=== PATIENT | female | born 1970 | race Caucasian/White ===

== ENCOUNTER 2017-02-04 19:17 | Emergency (ER) | payer MEDICAID ==
[~2017-02-04] VITALS: Ht 154.9 cm; Wt 61.0 kg
[~2017-02-04 19:17] MED LIST: CYCL-319 PO; FIORICET PO; NAPR-260 PO
[2017-02-04 19:46] VITALS: Ht 154.9 cm; Wt 61.0 kg
[2017-02-04] MEDS ORDERED: KETOROLAC 60 MG INJ IM STA (20:50)
[2017-02-04 21:07] LABS: URINE BLOOD (Dip) POC Trace-lysed (NEGATIVE)
[2017-02-04] MEDS ORDERED: IBUP800T25 PO (21:22)
[2017-02-04] MEDS ORDERED: TRAM50TA2 PO (21:22)
--- NOTE | 2017-02-04 21:25 | ERD ---
ER Documentation Chief Complaint Date/Time DATE: 02/04/17 TIME: 21:23 Chief Complaint GENERALIZED BODY PAIN, PT C/O "BONE PAIN", HEADACHE HPI 46-year-old otherwise healthy female presents complaining of body pain for the past 2 weeks. Pain is in her lower back as well as bilateral knees. She denies any trauma. She denies any bowel or bladder incontinence. Denies any saddle anesthesia. Denies any urinary symptoms. Denies fever. She takes Tylenol at home but does not help. ROS All systems reviewed and are negative except as per history of present illness. Medications Home Meds Active Scripts Tramadol HCl (Tramadol HCl) 50 Mg Tablet, 50 MG PO Q6 Y for PAIN, #20 TAB Prov:RAIN MAURICE PA-C 02/04/17 Ibuprofen* (Motrin*) 800 Mg Tab, 800 MG PO Q6, #30 TAB Prov:RAIN MAURICE PA-C 02/04/17 Naproxen* (Naprosyn*) 500 Mg Tablet, 500 MG PO BID Y for PAIN AND/OR INFLAMMATION, #30 TAB Prov:CHARMAINE SHARIF PA-C 02/25/16 Cyclobenzaprine Hcl* (Cyclobenzaprine Hcl*) 10 Mg Tablet, 10 MG PO TID, #15 TAB Prov:CHARAMINE SHARIF PA-C 02/25/16 Acetamin/Butalbital/Caffeine* (Fioricet*) 1 Tab Tab, 1 TAB PO Q4H Y for PAIN LEVEL 1-5, #20 TAB Prov:CHARMAINE SHARIF PA-C 01/23/16 PMhx/Soc Medical and Surgical Hx: pt denies Medical Hx History of Surgery: Yes (hysterectomy, left oophorectomy, appendectomy) Anesthesia Reaction: No Hx Neurological Disorder: No Hx Respiratory Disorders: No Hx Cardiac Disorders: No Hx Psychiatric Problems: No Hx Miscellaneous Medical Probl: No Hx Alcohol Use: No Hx Substance Use: No Hx Tobacco Use: No Smoking Status: Never smoker FmHx Family History: No diabetes Physical Exam Vitals Vital Signs Date Time Temp Pulse Resp B/P Pulse Ox O2 Delivery O2 Flow Rate FiO2 02/04/17 19:46 98.3 80 17 135/77 98 Physical Exam General: well developed, well nourished, alert, nontoxic, no distress Head: normocephalic, atraumatic Neck: Supple, nontender, no lymphadenopathy, no midline tenderness Oropharynx: no tonsilar erythema or edema, uvula midline, no exudates, no kissing tonsils, no drooling Respiratory: Clear to auscaultation bilaterally, speaks in full sentences, no use of accesory muscles or labored breathing, no rales, ronchi, or wheezing Cardiovascular: RRR, No murmurs GI: soft, non tender, non distended, negative murphys sign, negative mcburneys point tenderness, no cva tenderness bilaterally, no rebound or guarding Back: no midline tenderness, no step offs or bony abnormalities, sensation to light touch in tact Extremities: moving all extremities normally, normal gait, no edema Results 24 hrs Laboratory Tests Test 02/04/17 21:10 Bedside Urine pH (LAB) 7.5 Bedside Urine Protein (LAB) Negative Bedside Urine Glucose (UA) Negative Bedside Urine Ketones (LAB) Negative Bedside Urine Blood Trace-lysed Bedside Urine Nitrite (LAB) Negative Bedside Urine Leukocyte Esterase (L Negative Current Medications Medications (Trade) Dose Ordered Sig/Lanie Route PRN Reason Start Time Stop Time Status Last Admin Dose Admin Ketorolac Tromethamine (Toradol) 60 mg ONCE STAT IM 02/04/17 20:50 02/04/17 20:51 DC 02/04/17 21:03 Procedures/MDM Patient presents with generalized body aches. Her vital signs are normal. There was no trauma warranting imaging. Her exam is normal. She was given Toradol here in the emergency room. She was discharged with ibuprofen and tramadol. Urine dip was negative for infection here in the emergency room. Recommended this patient follow up with her primary care doctor within 48 hours or return to the emergency room for any worsening of symptoms. However this time I do believe there is suitable for outpatient management. I answered all their questions and they agreed with the plan and were discharged home. Departure Diagnosis: Primary Impression: Myalgia Condition: Stable Patient Instructions: Myalgias Additional Instructions: Llame al doctor CONRADO y rodri jocelyn EDWIN PARA DENTRO DE 1-2 GARCIA.Dgale a la secretaria que nosotros le instruimos hacer esta edwin.Avise o llame si muse condicin se empeora antes de la edwin. Regresa aqui si peor o no mejor. RAIN MAURICE PA-C Feb 04, 2017 21:25
== END 2017-02-04 21:31 | disposition home or self-care (01) ==
LOC: FTE 19:17
DX: M79.1 Myalgia (principal)
CPT/HCPCS: 81003; 96372; J1885; Z7502

== ENCOUNTER 2017-06-11 19:41 | Emergency (ER) | payer MEDICAID ==
[~2017-06-11] VITALS: Ht 154.9 cm; Wt 61.0 kg
[~2017-06-11 19:41] MED LIST changes: +IBUP800T25 PO; +TRAM50TA2 PO
[2017-06-11 19:45] VITALS: Ht 154.9 cm; Wt 61.0 kg
[2017-06-11] MEDS ORDERED: METOCLOPRAMIDE 10 MG INJ IV STA (20:41)
[2017-06-11] MEDS ORDERED: DIPHENHYDRAMINE 50 MG INJ IV STA (20:41)
[2017-06-11] MEDS ORDERED: KETOROLAC 30 MG INJ IV STA (20:41)
[2017-06-11] MEDS ORDERED: SOD CHLORIDE 0.9% 1,000 ML IV ONE (21:00)
--- NOTE | 2017-06-11 21:45 | RADRPT ---
PROCEDURE: XR Chest. CLINICAL INDICATION: Headache TECHNIQUE: Single AP portable chest. COMPARISON: No prior Chest x-ray FINDINGS: The cardiomediastinal silhouette is within normal limits of size. The lungs are clear without pleur al effusion or focal consolidation. No pneumothorax. The osseous structures and soft tissues are unr emarkable. IMPRESSION: 1. No evidence for active cardiopulmonary disease. RPTAT:AAJJ Physician Azul Date Time Electronically viewed and signed by Physician Azul on 06/11/2017 21:45 LOUIE/
[2017-06-11 22:20] LABS: BASOPHILS % 0.8 % (0.0-2.0); EOSINOPHILS % 0.8 % (0.0-7.0); HEMATOCRIT 41.3 % (37.0-47.0); HEMOGLOBIN 14.1 g/dl (12.0-16.0); LYMPHOCYTES # 1.7 10^3/ul (0.8-2.9); LYMPHOCYTES % 31.8 % (15.0-51.0); MEAN CORPUSCULAR HEMOGLOBIN 29.1 pg (29.0-33.0); MEAN CORPUSCULAR HGB CONC 34.1 g/dl (32.0-37.0); MEAN CORPUSCULAR VOLUME 85.3 fl (82.0-101.0); MONOCYTE # 0.4 10^3/ul (0.3-0.9); MONOCYTES % 6.9 % (0.0-11.0); NEUTROPHIL # 3.1 10^3/ul (1.6-7.5); NEUTROPHILS % 59.5 % (39.0-77.0); PLATELET COUNT 222 10^3/UL (140-415); RED BLOOD COUNT 4.84 10^6/ul (4.20-5.40); RED CELL DISTRIBUTION WIDTH 12.2 % (11.5-14.5); WHITE BLOOD COUNT 5.3 10^3/ul (4.8-10.8)
[2017-06-11 22:38] LABS: ANION GAP 16 (8-16); BLOOD UREA NITROGEN 11 mg/dl (7-20); CARBON DIOXIDE 26 mmol/L (21-31); CHLORIDE 104 mmol/L (97-110); CREATININE 0.67 mg/dl (0.44-1.00); GLUCOSE 92 mg/dl (70-220); POTASSIUM 3.6 mmol/L (3.5-5.1); SODIUM 142 mmol/L (135-144)
--- NOTE | 2017-06-11 22:38 | ERD ---
ER Documentation Chief Complaint Date/Time DATE: 06/11/17 TIME: 22:28 Chief Complaint headache/body aches/chills x 2 weeks HPI This is a 47 year old, with past medical history of migraines and gastritis, presenting to ER with headache, body aches, nausea, vomiting, dizziness and chest wall pain x 2 weeks. Patient was seen at an outside facility 1 week ago and diagnosed patient with "migraines." Patient has been taking Excedrin at home without relief of symptoms. Headache is "entire head." No localized area of pain. No radiating pain. No vomiting today. Patient had 2 episodes of vomiting yesterday. Nonbloody, nonbilious emesis. ROS All systems reviewed and are negative except as per history of present illness. Medications Home Meds Active Scripts Omeprazole* (Omeprazole*) 20 Mg Capsule.dr, 20 MG PO DAILY, #30 Prov:RADHA CHAO NP 06/11/17 Acetamin/Butalbital/Caffeine* (Fioricet*) [id number] Tab, 1 TAB PO Q6H Y for PAIN, #10 TAB Prov:RADHA CHAO NP 06/11/17 Tramadol HCl (Tramadol HCl) 50 Mg Tablet, 50 MG PO Q6 Y for PAIN, #20 TAB Prov:RAIN MAURICE PA-C 02/04/17 Ibuprofen* (Motrin*) 800 Mg Tab, 800 MG PO Q6, #30 TAB Prov:RAIN MAURICE PA-C 02/04/17 Naproxen* (Naprosyn*) 500 Mg Tablet, 500 MG PO BID Y for PAIN AND/OR INFLAMMATION, #30 TAB Prov:CHARMAINE SHARIF PA-C 02/25/16 Cyclobenzaprine Hcl* (Cyclobenzaprine Hcl*) 10 Mg Tablet, 10 MG PO TID, #15 TAB Prov:CHARMAINE SHARIF PA-C 02/25/16 Acetamin/Butalbital/Caffeine* (Fioricet*) 1 Tab Tab, 1 TAB PO Q4H Y for PAIN LEVEL 1-5, #20 TAB Prov:CHARMAINE SHARIF PA-C 01/23/16 Allergies Allergies: Coded Allergies: aspirin (Verified Allergy, Unknown, vomiting, 06/11/17) PMhx/Soc History of Surgery: Yes (hysterectomy, left oophorectomy, appendectomy) Anesthesia Reaction: No Hx Neurological Disorder: No Hx Respiratory Disorders: No Hx Cardiac Disorders: No Hx Psychiatric Problems: No Hx Miscellaneous Medical Probl: No Hx Alcohol Use: No Hx Substance Use: No Hx Tobacco Use: No Smoking Status: Never smoker Physical Exam Vitals Vital Signs Date Time Temp Pulse Resp B/P Pulse Ox O2 Delivery O2 Flow Rate FiO2 06/11/17 23:27 98.1 72 20 128/71 99 Room Air 06/11/17 19:45 97.8 87 20 168/94 98 Physical Exam Const: No acute distress, alert Head: Atraumatic Eyes: Normal Conjunctiva, PERRL, EOMs intact. + Allegra Hallpike maneuver ENT: Normal External Ears, Nose and Mouth. Neck: Full range of motion..~ No meningismus. Resp: Clear to auscultation bilaterally Cardio: Regular rate and rhythm, no murmurs Abd: Soft, non tender, non distended. Normal bowel sounds Skin: No petechiae or rashes Back: No midline or flank tenderness Ext: No cyanosis, or edema Neur: Awake and alert Psych: Normal Mood and Affect Result Diagram: 06/11/17210306/11/172103 Results 24 hrs Laboratory Tests Test 06/11/17 21:04 06/11/17 21:12 White Blood Count 5.310^3/ul Red Blood Count 4.8410^6/ul Hemoglobin 14.1g/dl Hematocrit 41.3% Mean Corpuscular Volume 85.3fl Mean Corpuscular Hemoglobin 29.1pg Mean Corpuscular Hemoglobin Concent 34.1g/dl Red Cell Distribution Width 12.2% Platelet Count 96715^3/UL Mean Platelet Volume 12.0fl Neutrophils % 59.5% Lymphocytes % 31.8% Monocytes % 6.9% Eosinophils % 0.8% Basophils % 0.8% Nucleated Red Blood Cells % 0.0/100WBC Neutrophils # 3.110^3/ul Lymphocytes # 1.710^3/ul Monocytes # 0.410^3/ul Eosinophils # 0.010^3/ul Basophils # 0.010^3/ul Nucleated Red Blood Cells # 0.010^3/ul Sodium Level 142mmol/L Potassium Level 3.6mmol/L Chloride Level 104mmol/L Carbon Dioxide Level 26mmol/L Anion Gap 16 Blood Urea Nitrogen 11mg/dl Creatinine 0.67mg/dl Glucose Level 92mg/dl Calcium Level 10.0mg/dl Troponin I < 0.012ng/ml Urine Color COLORLESS Urine Clarity CLEAR Urine pH 8.0 Urine Specific [place] 1.002 Urine Ketones NEGATIVEmg/dL Urine Nitrite NEGATIVEmg/dL Urine Bilirubin NEGATIVEmg/dL Urine Urobilinogen NEGATIVEmg/dL Urine Leukocyte Esterase NEGATIVELeu/ul Urine Microscopic RBC 0/HPF Urine Microscopic WBC 0/HPF Urine Bacteria FEW/HPF Urine Hemoglobin 1+mg/dL Urine Glucose NEGATIVEmg/dL Urine Total Protein NEGATIVEmg/dl Current Medications Medications (Trade) Dose Ordered Sig/Lanie Route PRN Reason Start Time Stop Time Status Last Admin Dose Admin Metoclopramide HCl (Reglan) 10 mg ONCE STAT IV 06/11/17 20:41 06/11/17 20:44 DC 06/11/17 20:54 Ketorolac Tromethamine (Toradol) 30 mg ONCE STAT IV 06/11/17 20:41 06/11/17 20:44 DC 06/11/17 20:55 Diphenhydramine HCl 25 mg 25 mg ONCE STAT IV 06/11/17 20:41 06/11/17 20:44 DC 06/11/17 21:02 Sodium Chloride (NS) 1,000 ml @ 1,000 mls/hr Q1H ONCE IV 06/11/17 21:00 06/11/17 21:59 DC 06/11/17 21:04 Procedures/MDM DM: This is a 47-year-old female presenting to emergency department with headache, body aches, nausea, vomiting, dizziness and chest wall pain 2 weeks. Patient was previously diagnosed with migraines and gastritis. Patient states she took Excedrin at home however it aggravated her gastritis and she continued taking it. Patient states she had 2 episodes of nonbloody nonbilious emesis yesterday. No vomiting today. However patient feels nauseous today. Dizziness worsens when she lays down. Positive Allegra-Hallpike maneuver. Labs drawn and urine collected per clinical staff anesthesiologist. CBC shows no significant anemia or infection. BMP shows no significant electrolyte imbalance. Troponin is negative at <0.012. Urine is negative for infection. Urine is negative. IV access obtained and patient given Benadryl, Reglan and Toradol. Patient also given 1 L IV fluid bolus. Upon reassessment, patient states pain has improved significantly. Denies this being the worst headache she's ever had. No altered mental status. No indication for Imaging at this time. No fevers or chills. No diplopia, loss of vision or blurry vision. No trauma to head or fall. No loss of consciousness. No vomiting. No confusion or altered mental status. Patient denies ataxic gait, slurred speech, numbness of the face or body, weakness, clumsiness, or incoordination. Low suspicion for CVA, TIA, meningitis, subdural hematoma, intracranial hemorrhage or mass. Differential diagnosis includes but not limited to tension headache, migraine headache, cluster headache, sinus headache, sinusitis, trigeminal neuralgia, herpes zoster and postherpetic neuralgia. Patient is appropriate for outpatient management will be given prescription for Fioricet. Instructed patient to follow-up with primary care provider in the next 2-3 days for reassessment. Resources provided. Return to ED for any high fever, chest pain, difficulty breathing, shortness breath, wheezing, vomiting, diarrhea, abdominal pain or any new or worsening symptoms. Patient verbalizes understanding. All questions answered at discharge. Disclaimer: Inadvertent spelling and grammatical errors are likely due to EHR/ dictation software use and do not reflect on the overall quality of patient care. Also, please note that the electronic time recorded on this note does not necessarily reflect the actual time of the patient encounter. Departure Diagnosis: Primary Impression: Headache Headache type: unspecified Headache chronicity pattern: chronic headache Intractability: not intractable Qualified Code: R51 - Chronic nonintractable headache, unspecified headache type Condition: Stable RADHA CHAO NP Jun 11, 2017 22:38
[2017-06-11 22:39] LABS: ADD UMIC YES; UR ASCORBIC ACID NEGATIVE (NEGATIVE); UR BACTERIA FEW /HPF (NONE SEEN); UR BILIRUBIN (Dip) NEGATIVE (NEGATIVE); UR BLOOD (Dip) 1+ mg/dL (NEGATIVE); UR CLARITY CLEAR (CLEAR); UR COLOR COLORLESS (YELLOW); UR GLUCOSE (Dip) NEGATIVE (NEGATIVE); UR KETONES (Dip) NEGATIVE (NEGATIVE); UR LEUKOCYTE ESTERASE (Dip) NEGATIVE Leu/ul (NEGATIVE); UR NITRITE (Dip) NEGATIVE (NEGATIVE); UR RBC 0 /HPF (0-5); UR SPECIFIC GRAVITY (Dip) 1.002 (1.003-1.030); UR TOTAL PROTEIN (Dip) NEGATIVE (NEGATIVE); UR UROBILINOGEN (Dip) NEGATIVE (NEGATIVE)
[2017-06-11 22:49] LABS: TROPONIN-I < 0.012 ng/ml (0.00-0.12)
[2017-06-11] MEDS ORDERED: FIORICET PO (22:52)
[2017-06-11] MEDS ORDERED: OMEP20CA16 PO (22:53)
[2017-06-11 23:27] VITALS: BP 128/71; PULSE 72; RESP 20; TEMP 98.1
== END 2017-06-11 23:28 | disposition home or self-care (01) ==
LOC: FTE 19:41
DX: R51 Headache (principal); R07.89 Other chest pain
CPT/HCPCS: 36415; 71010; 80048; 81001; 84484; 85025; 93005; 96374; 96375; J1200; J1885; J2765; J7030; Z7502

== ENCOUNTER 2018-02-18 16:14 | Emergency (ER) | END 2018-02-18 21:25 | disposition home or self-care (01) ==

== ENCOUNTER 2019-01-14 22:24 | Emergency (ER) | payer MEDICAID ==
[~2019-01-14] VITALS: Ht 154.9 cm; Wt 64.0 kg
[~2019-01-14 22:24] MED LIST changes: +ACET1TAB40 PO; -CYCL-319 PO; +CYCL10TA7 PO; -IBUP800T25 PO; +IBUP800T48 PO; +LOPE2CAP PO; -NAPR-260 PO; +NAPR-985 PO; +OMEP20CA16 PO
[2019-01-14 22:26] VITALS: Ht 154.9 cm; Wt 64.0 kg
[2019-01-14] MEDS ORDERED: morphine 4 MG/ML VIAL IV STA (23:39)
[2019-01-14] MEDS ORDERED: ONDANSETRON 4 MG INJ IV STA (23:39)
--- NOTE | 2019-01-15 02:23 | ERD ---
ER Documentation Chief Complaint Chief Complaint ABD PAIN WITH NAUSEA [id number] HPI This is a 48-year-old female with a history of gastritis who presents with nausea for 3 weeks, she endorses a burning type pain that radiates up, she den ies diarrhea, no fever, no chest pain or shortness of breath. No alleviating or aggravating factors. ROS All systems reviewed and are negative except as per history of present illness. Medications Home Meds Active Scripts Docusate Sodium* (Colace*) 100 Mg Capsule, 100 MG PO DAILY, #30 CAP Prov:ANTOLIN CAMARENA MD 01/15/19 Famotidine* (Pepcid*) 20 Mg Tablet, 20 MG PO BID for 10 Days, TAB Prov:ANTOLIN CAMARENA MD 01/15/19 Polyethylene Glycol* (Miralax*) 17 Gm Powd.pack, 17 GM PO DAILY, #7 Prov:ANTOLIN CAMARENA MD 01/15/19 Omeprazole* (Omeprazole*) 20 Mg Capsule., 20 MG PO BID, #30 Prov:LINUS FLANNERY MD 02/18/18 Acetaminophen with Codeine (Acetaminophen-Cod #3 Tablet) 1 Each Tablet, 1 TAB PO Q6H PRN for PAIN, #10 TAB Prov:LINUS FLANNERY MD 02/18/18 Loperamide Hcl* (Imodium*) 2 Mg Capsule, 2 MG PO .AFTER EA LOOSE BM PRN for D IARRHEA, #10 TAB Prov:LINUS FLANNERY MD 02/18/18 Omeprazole* (Omeprazole*) 20 Mg Capsule., 20 MG PO DAILY, #30 Prov:RADHA CHAO NP 06/11/17 Acetamin/Butalbital/Caffeine* (Fioricet*) [id number] Tab, 1 TAB PO Q6H PRN for PAIN, #10 TAB Prov:RADHA CHAO NP 06/11/17 Tramadol HCl (Tramadol HCl) 50 Mg Tablet, 50 MG PO Q6 PRN for PAIN, #20 TAB Prov:RAIN MAURICE PA-C 02/04/17 Ibuprofen* (Motrin*) 800 Mg Tab, 800 MG PO Q6, #30 TAB Prov:RAIN MAURICE PA-C 02/04/17 Naproxen* (Naprosyn*) 500 Mg Tablet, 500 MG PO BID PRN for PAIN AND/OR INFLAMMATION, #30 TAB Prov:CHARMAINE SHARIF PA-C 02/25/16 Cyclobenzaprine Hcl* (Cyclobenzaprine Hcl*) 10 Mg Tablet, 10 MG PO TID, #15 TAB Prov:CHARMAINE SHARIF PA-C 02/25/16 Acetamin/Butalbital/Caffeine* (Fioricet*) 1 Tab Tab, 1 TAB PO Q4H PRN for PAIN LEVEL 1-5, #20 TAB Prov:CHARMAINE SHARIF PA-C 01/23/16 Allergies Allergies: Coded Allergies: aspirin (Verified Allergy, Unknown, vomiting, 06/11/17) PMhx/Soc History of Surgery: Yes (hysterectomy, left oophorectomy, appendectomy) Anesthesia Reaction: No Hx Neurological Disorder: No Hx Respiratory Disorders: No Hx Cardiac Disorders: No Hx Psychiatric Problems: No Hx Miscellaneous Medical Probl: No Hx Alcohol Use: No Hx Substance Use: No Hx Tobacco Use: No Smoking Status: Never smoker Physical Exam Vitals Vital Signs Date Temp Pulse Resp B/P (MAP) Pulse Ox O2 O2 Flow FiO2 Time Delivery Rate 01/15/19 98.2 72 16 123/82 100 Room Air 03:13 (96) 01/15/19 65 18 149/85 100 Room Air 00:26 (106) 01/14/19 98.0 83 19 137/82 97 22:26 (100) Physical Exam Const: No acute distress Head: Atraumatic Eyes: Normal Conjunctiva ENT: Normal External Ears, Nose and Mouth. Neck: Full range of motion. No meningismus. Resp: Clear to auscultation bilaterally Cardio: Regular rate and rhythm, no murmurs Abd: Soft, non tender, non distended. Normal bowel sounds Skin: No petechiae or rashes Back: No midline or flank tenderness Ext: No cyanosis, or edema Neur: Awake and alert Psych: Normal Mood and Affect Result Diagram: 01/15/19 0010 01/15/19 0010 Results 24 hrs Laboratory Tests Test 01/14/19 00:05 01/15/19 00:10 01/15/19 00:19 Urine Color COLORLESS Urine Clarity CLEAR Urine pH 8.0 Urine Specific [place] 1.005 Urine Ketones NEGATIVE mg/dL Urine Nitrite NEGATIVE mg/dL Urine Bilirubin NEGATIVE mg/dL Urine Urobilinogen NEGATIVE mg/dL Urine Leukocyte Esterase NEGATIVE John/ul Urine Hemoglobin NEGATIVE mg/dL Urine Glucose NEGATIVE mg/dL Urine Total Protein NEGATIVE mg/dl White Blood Count 5.9 10^3/ul Red Blood Count 4.37 10^6/ul Hemoglobin 12.7 g/dl Hematocrit 37.7 % Mean Corpuscular Volume 86.3 fl Mean Corpuscular Hemoglobin 29.1 pg Mean Corpuscular 33.7 g/dl Hemoglobin Concent Red Cell Distribution Width 12.3 % Platelet Count 224 10^3/UL Mean Platelet Volume 11.4 fl Immature Granulocytes % 0.200 % Neutrophils % 67.2 % Lymphocytes % 23.2 % Monocytes % 7.8 % Eosinophils % 0.9 % Basophils % 0.7 % Nucleated Red Blood Cells % 0.0 /100WBC Immature Granulocytes # 0.010 10^3/ul Neutrophils # 3.9 10^3/ul Lymphocytes # 1.4 10^3/ul Monocytes # 0.5 10^3/ul Eosinophils # 0.1 10^3/ul Basophils # 0.0 10^3/ul Nucleated Red Blood Cells # 0.0 10^3/ul Sodium Level 141 mmol/L Potassium Level 4.4 mmol/L Chloride Level 105 mmol/L Carbon Dioxide Level 27 mmol/L Anion Gap 9 Blood Urea Nitrogen 8 mg/dl Creatinine 0.53 mg/dl Est Glomerular Filtrat > 60 mL/min Rate mL/min Glucose Level 116 mg/dl Calcium Level 9.5 mg/dl Total Bilirubin 0.3 mg/dl Direct Bilirubin 0.00 mg/dl Indirect Bilirubin 0.3 mg/dl Aspartate Amino 36 IU/L Transf (AST/SGOT) Alanine 59 IU/L Aminotransferase (ALT/SGPT) Alkaline Phosphatase 75 IU/L Troponin I < 0.012 ng/ml Total Protein 7.9 g/dl Albumin 4.6 g/dl Globulin 3.30 g/dl Albumin/Globulin Ratio 1.39 Lipase 55 U/L POC Beta HCG, Qualitative NEGATIVE Current Medications Medications Dose Sig/Lanie Start Time Status Last (Trade) Ordered Route PRN Stop Time Admin Dose Reason Admin Morphine 4 mg ONCE STAT 01/14/19 DC 01/15/19 Sulfate IV 23:39 00:26 (morphine) 01/14/19 23:40 Ondansetron 4 mg ONCE STAT 01/14/19 DC 01/15/19 HCl (Zofran IV 23:39 00:26 Inj) 01/14/19 23:40 [place] [address] Radiology Main Line: [phone] DIAGNOSTIC IMAGING REPORT Patient: EDWIGE SEVILLA : 1970 Age: 48 Sex: F MR #: [id number] DOS: 01/14/19 2339 Ordering MD: ANTOLIN CAMARENA MD Location: E/R Room/Bed: PROCEDURE: CT Abdomen and Pelvis without contrast. CLINICAL INDICATION: Abdominal pain. TECHNIQUE: Unenhanced CT scan of the abdomen and pelvis was performed on a multi-detector high-resolution CT scanner. Coronal and sagittal reformatted images were obtained from the axial source images. Images were reviewed on a high-resolution PACS workstation. The total exam CTDI equals 9.2 mGy and the total exam DLP equals 519.4 mGy-cm. DICOM images are available. One or more of the following dose reduction techniques were utilized: 1.) Automated exposure control 2.) Adjustment of the mA +/- kV according to patient's size 3.) Use of iterative reconstruction technique. COMPARISON: 02/18/2018. FINDINGS: Evaluation of the soft tissues and viscera is limited in the absence of contrast. Partially visualized minimal bibasilar pulmonary subsegmental atelectasis. Heart base appears normal. Trace systemic atherosclerotic calcifications without abdominal aortoiliac aneurysmal dilatation. No pathologic lymphadenopathy identified by imaging criteria. Liver is normal in size and contour, redemonstrating diffuse fatty infiltration focally sparing about the gallbladder fossa without identifiable focal mass lesion in the absence of intravenous contrast. Gallbladder is mildly distended without identifiable pericholecystic inflammatory change or extrahepatic biliary ductal dilatation. Pancreas demonstrates normal contour, without identifiable peripancreatic inflammatory change. Spleen is normal in size. Adrenal glands appear normal. Bowel is unobstructed without free air, free fluid or focal mesenteric inflammatory change. The appendix is not definitely identified, but there is no indirect evidence of acute appendicitis. Moderate stool burden in the right colon may reflect constipation. No identifiable significant diverticulosis nor evidence of acute diverticulitis. Kidneys demonstrate normal size, contour and orientation without identifiable focal mass lesion in the absence of intravenous contrast. No nephrolithiasis nor hydronephrosis. The ureters run unobstructed to a normal - appearing incompletely distended bladder. The patient is status post hysterectomy with postsurgical changes of the vaginal cuff. No pathologic adnexal mass identified in the absence of contrast. Osseous structures are stable and intact with mild multilevel spondylotic changes. Healed Pfannenstiel incision. Subcutaneous soft tissue scarring in the bilateral buttocks. IMPRESSION: 1. Moderate stool burden in the right colon may reflect constipation. The bowel is unobstructed without evidence of perforation or abscess, and there is no [place] dence of acute appendicitis. 2. Redemonstrated hepatosteatosis. 3. No nephrolithiasis nor hydronephrosis. RPTAT: HSAN Physician Bhavin Date Time Electronically viewed and signed by Mayco Narayanan Physician on 01/15/2019 01:20 xN/ CC: ANTOLIN CAMARENA MD [phone] [place] [address] Radiology Main Line: [phone] DIAGNOSTIC IMAGING REPORT Patient: EDWIGE SEVILLA : 1970 Age: 48 Sex: F MR #: [id number] DOS: 01/14/19 2339 Ordering MD: ANTOLIN CAMARENA MD Location: E/R Room/Bed: PROCEDURE: CT Abdomen and Pelvis without contrast. CLINICAL INDICATION: Abdominal pain. TECHNIQUE: Unenhanced CT scan of the abdomen and pelvis was performed on a multi-detector high-resolution CT scanner. Coronal and sagittal reformatted images were obtained from the axial source images. Images were reviewed on a high-resolution PACS workstation. The total exam CTDI equals 9.2 mGy and the total exam DLP equals 519.4 mGy-cm. DICOM images are available. One or more of the following dose reduction techniques were utilized: 1.) Automated exposure control 2.) Adjustment of the mA +/- kV according to patient's size 3.) Use of iterative reconstruction technique. COMPARISON: 02/18/2018. FINDINGS: Evaluation of the soft tissues and viscera is limited in the absence of contras t. Partially visualized minimal bibasilar pulmonary subsegmental atelectasis. Heart base appears normal. Trace systemic atherosclerotic calcifications without abdominal aortoiliac aneurysmal dilatation. No pathologic lymphadenopathy identified by imaging criteria. Liver is normal in size and contour, redemonstrating diffuse fatty infiltration focally sparing about the gallbladder fossa without identifiable focal mass lesion in the absence of intravenous contrast. Gallbladder is mildly distended without identifiable pericholecystic inflammatory change or extrahepatic biliary ductal dilatation. Pancreas demonstrates normal contour, without identifiable peripancreatic inflammatory change. Spleen is normal in size. Adrenal glands appear normal. Bowel is unobstructed without free air, free fluid or focal mesenteric inflammatory change. The appendix is not definitely identified, but there is no indirect evidence of acute appendicitis. Moderate stool burden in the right colon may reflect constipation. No identifiable significant diverticulosis nor evidence of acute diverticulitis. Kidneys demonstrate normal size, contour and orientation without identifiable focal mass lesion in the absence of intravenous contrast. No nephrolithiasis nor hydronephrosis. The ureters run unobstructed to a normal - appearing incompletely distended bladder. The patient is status post hysterectomy with postsurgical changes of the vaginal cuff. No pathologic adnexal mass identified in the absence of contrast. Osseous structures are stable and intact with mild multilevel spondylotic changes. Healed Pfannenstiel incision. Subcutaneous soft tissue scarring in the bilateral buttocks. IMPRESSION: 1. Moderate stool burden in the right colon may reflect constipation. The bowel is unobstructed without evidence of perforation or abscess, and there is no evidence of acute appendicitis. 2. Redemonstrated hepatosteatosis. 3. No nephrolithiasis nor hydronephrosis. RPTAT: HSAN Physician Bhavin Date Time Electronically viewed and signed by Physician Bhavin on 01/15/2019 01:20 xN/ CC: ANTOLIN CAMARENA MD [id number] Procedures/MDM This is a 48-year-old female presents for evaluation of epigastric pain. On exam patient was well-appearing nontoxic, she had no peritoneal signs, she had no cardiopulmonary symptoms, her lab work was overall unremarkable. Her symptoms improved in the ED, and her CT abdomen pelvis showed a moderate stool burden, otherwise no acute findings, no signs of his abdomen. Recommended bowel regimen, as well as return precautions to return for any worsening abdominal pain, fever, or any other concerning symptoms, at discharge she was in no distress. EKG: Rate/Rhythm: Normal Sinus Rhythm QRS, ST, T-waves: No changes consistent w/ acute ischemia Impression: No evidence of ischemia or arrhythmia Departure Diagnosis: Primary Impression: Abdominal pain Abdominal location: epigastric Qualified Codes: R10.13 - Epigastric pain Condition: Stable ANTOLIN CAMARENA MD January 15, 2019 02:23
[2019-01-15] MEDS ORDERED: FAMO-96 PO (02:58)
[2019-01-15] MEDS ORDERED: POLY17PO6 PO (02:58)
[2019-01-15] MEDS ORDERED: DOCU-144 PO (02:58)
[2019-01-15 03:13] VITALS: BP 123/82; PULSE 72; RESP 16
== END 2019-01-15 03:19 | disposition home or self-care (01) ==
LOC: E/R 22:24
DX: R10.9 Unspecified abdominal pain (principal); R11.0 Nausea
CPT/HCPCS: 36415; 74176; 80053; 81003; 81025; 83690; 84484; 85025; 93005; 96374; 96375; J2270; J2405; Z7502